=== PATIENT | male | born 1990 | race Caucasian/White ===

== ENCOUNTER 2020-04-26 21:33 | Day surgery (SDC) | payer MEDICAID ==
[~2020-04-26] VITALS: Ht 170.2 cm; Wt 159.0 kg
[2020-04-26] MEDS ORDERED: MORPHINE SULFATE 4 MG/ML CPJ (NOT FOR IM USE) IV STA (22:21)
[2020-04-26] MEDS ORDERED: SODIUM CHLORIDE 0.9% 1,000 ML IV ONE (22:21)
[2020-04-26] MEDS ORDERED: ONDANSETRON HCL 4MG/2ML INJ IV STA (22:21)
[2020-04-26 22:58] LABS: BASOPHILS % 0.4 % (0.0-2.0); EOSINOPHILS % 1.7 % (0.0-5.0); HEMATOCRIT. 52.5 % (42.0-52.0); LYMPHOCYTES % 7.9 % (20.0-50.0); MEAN CORPUSCULAR VOLUME 90.5 fL (80.0-94.0); MEAN PLATELET VOLUME 8.7 fl (7.4-10.4); PLATELET 227 x1000/uL (130-400)
[2020-04-26 23:05] LABS: CHLORIDE 97 mEq/L (98-107)
[2020-04-26 23:06] LABS: PROTHROMBIN TIME 10.2 sec (9.6-11.0)
[2020-04-26 23:32] LABS: CLARITY URINE CLEAR (CLEAR); COLOR URINE YELLOW (YELLOW); KETONES URINE 1+ (NEGATIVE); LEUKOCYTE ESTERASE URINE NEGATIVE (NEGATIVE); NITRITE URINE NEGATIVE (NEGATIVE); OCCULT BLOOD URINE NEGATIVE (NEGATIVE); PROTEIN URINE 3+ (NEGATIVE); UROBILINOGEN URINE 0.2 E.U./dL (0.2-1.0)
[2020-04-27] MEDS ORDERED: HYDRALAZINE 20MG/ML VIAL IV ONE ×2 (00:30→01:45)
[2020-04-27] MEDS ORDERED: PIPERACILLIN/TAZ 3.375G PREMIX 50 ML IV ONE (01:00)
[2020-04-27] MEDS ORDERED: MORPHINE SULFATE 4 MG/ML CPJ (NOT FOR IM USE) IV ONE (01:45)
[2020-04-27 02:10] VITALS: BP 177/92
[2020-04-27] MEDS ORDERED: BUPIVACAINE HCL 0.5% (5MG/ML) 50ML ONE (03:24)
[2020-04-27] MEDS ORDERED: METOCLOPRAMIDE HCL 10MG/2ML VIAL ONE (04:19)
[2020-04-27] MEDS ORDERED: ONDANSETRON HCL 4MG/2ML INJ ONE (04:19)
[2020-04-27] MEDS ORDERED: FENTANYL CITRATE/PF 50MCG/ML 2ML VIAL ONE (04:19)
[2020-04-27] MEDS ORDERED: SODIUM CHLORIDE 0.9% 10ML VIAL ONE (04:19)
[2020-04-27] MEDS ORDERED: PROPOFOL 200MG/20ML VIAL IV ONE (04:19)
[2020-04-27] MEDS ORDERED: MIDAZOLAM HCL 2 MG/2 ML VIAL ONE (04:19)
[2020-04-27] MEDS ORDERED: CEFAZOLIN SODIUM 1000MG/VIAL ONE (04:19)
[2020-04-27] MEDS ORDERED: NEOSTIGMINE METHYLSULFATE 1MG/ML 10 ML VIAL ONE (04:19)
[2020-04-27] MEDS ORDERED: SUCCINYLCHOLINE CHLORIDE 200MG/10ML IV ONE (04:19)
[2020-04-27] MEDS ORDERED: PHENYLEPHRINE HCL 10 MG/ML 1ML (IV VIAL) IV ONE (04:19)
[2020-04-27] MEDS ORDERED: GLYCOPYRROLATE 0.2 MG/ML 2ML VIAL ONE (04:19)
[2020-04-27] MEDS ORDERED: ROCURONIUM BROMIDE 10MG/ML VIAL 5ML IV ONE (04:19)
[2020-04-27] MEDS ORDERED: EPHEDRINE SULFATE 50MG/ML VIAL ONE (04:19)
[2020-04-27] MEDS ORDERED: SKIN ADHESIVE 0.7 GM EA TOP ONE (04:30)
[2020-04-27] MEDS ORDERED: ACETAMINOPHEN 650MG SUPP PR PRN (05:15)
[2020-04-27] MEDS ORDERED: ONDANSETRON HCL 4MG/2ML INJ IV PRN (05:15)
[2020-04-27] MEDS ORDERED: MORPHINE SULFATE 2 MG/ML CPJ (NOT FOR IM USE) IV PRN (05:15)
[2020-04-27] MEDS ORDERED: DEXT 5%/0.45% NACL 1000ML 1,000 ML IV SCH (06:00)
[2020-04-27] MEDS ORDERED: KETOROLAC 30MG/ML VIAL ONE (06:09)
[2020-04-27] MEDS ORDERED: PIPERACILLIN/TAZ 3.375G PREMIX 50 ML IV SCH (10:00)
[2020-04-27] MEDS ORDERED: ENALAPRIL 2.5MG/2ML VIAL 2ML IV SCH (12:00)
== END 2020-04-27 10:45 | disposition home or self-care (01) ==
LOC: ER 21:33 → EDBEDREQTM 04-27 01:21 → EDBEDREQ 04-27 01:21 → ER 04-27 04:03 → OR 04-27 04:04 → CANBEDREQ 04-27 15:25
PROVIDERS: ATTEND Surgery
DX: K35.80 Unspecified acute appendicitis (principal); E11.65 Type 2 diabetes mellitus with hyperglycemia; I10 Essential (primary) hypertension; F12.10 Cannabis abuse, uncomplicated; E66.9 Obesity, unspecified; Z68.43 Body mass index [BMI] 50.0-59.9, adult; Z72.89 Other problems related to lifestyle; Z79.899 Other long term (current) drug therapy; Z79.84 Long term (current) use of oral hypoglycemic drugs; Z98.890 Other specified postprocedural states
CPT/HCPCS: 36415; 44970; 71045; 74177; 80053; 81003; 83690; 85025; 85610; 87040; 88304; 93005; 94660; 96361; 96365; 96375; 96376; 99291; J0330; J0360; J0690; J1885; J2175; J2250; J2270; J2370; J2405; J2543; J2704; J2710; J2765; J3010; J3490; J7030; Q9967